=== PATIENT | female | born 1930 | race Asian ===

== ENCOUNTER 2018-08-02 11:45 | Inpatient (IN) | payer BC, OTHER ==
[~2018-08-02] VITALS: Ht 162.6 cm; Wt 64.0 kg
[2018-08-02] VITALS (36 sets, daily range): BP systolic 73–141; BP diastolic 27–76
[2018-08-02] MEDS ORDERED: MORPHINE SULFATE 2 MG/ML SYR IVP ONE (12:40)
[2018-08-02 13:05] LABS: BASOPHILS % (AUTO) 0.1 % (0.0-2.0); LYMPHOCYTES # (AUTO) 0.7 K/uL (2.5-16.5); LYMPHOCYTES % (AUTO) 5.7 % (20.5-51.1); MEAN CORPUSCULAR HEMOGLOBIN 31 pg (27-31); MEAN CORPUSCULAR HGB CONC 32 g/dL (33-37); MEAN CORPUSCULAR VOLUME 95.9 fL (80-94); MONOCYTES # (AUTO) 1.2 K/uL (0.8-1.0); MONOCYTES % (AUTO) 9.1 % (1.7-9.3); NEUTROPHILS % (AUTO) 85.1 % (42.2-75.2); PLATELET COUNT (AUTO) 213 K/uL (140-450); RED BLOOD CELL COUNT(AUTO) 1.96 MIL/uL (4.20-5.40); RED CELL DISTRIBUTION WIDTH 17.4 % (11.6-13.7); WHITE BLOOD COUNT (AUTO) 12.9 K/uL (4.8-10.8)
[2018-08-02 13:08] LABS: HEMATOCRIT 18.8 % (36-48)
[2018-08-02 13:10] LABS: ANION GAP 16.9 (8-16); CARBON DIOXIDE 23.6 mmol/L (21-32); CHLORIDE 101 mmol/L (98-107); GLUCOSE 152 mg/dL (74-106); POTASSIUM 4.5 mmol/L (3.5-5.1); SODIUM SERUM 137 mmol/L (136-145)
[2018-08-02 13:11] LABS: ALBUMIN 2.2 g/dL (3.4-5.0); CREATININE 2.3 mg/dL (0.6-1.3); TOTAL BILIRUBIN 0.6 mg/dL (0.0-1.0)
[2018-08-02 13:13] LABS: UREA NITROGEN, BLOOD 143 mg/dL (7-18)
[2018-08-02] MEDS ORDERED: DOPamine 400 MG/D5W PREMIX 250 ML IV ONE (13:15)
[2018-08-02] MEDS ORDERED: NACL 0.9% 1,000 ML IV ONE ×2 (13:15→17:30)
[2018-08-02 13:35] LABS: PROTHROMBIN TIME 11.1 secs (10.8-13.4)
[2018-08-02 13:40] LABS: ASPARTATE AMINOTRANSFERASE 82 U/L (15-37)
[2018-08-02] MEDS ORDERED: HYDROcodone/APAP 7.5/325 MG 1 TAB PO PRN (13:50)
[2018-08-02] MEDS ORDERED: ONDANSETRON 4 MG/2 ML VIAL IM/IVP PRN (13:50)
[2018-08-02] MEDS ORDERED: DOCUSATE SODIUM 100 MG GELCAP PO PRN (13:50)
[2018-08-02] MEDS ORDERED: LEVOFLOXACIN 500 MG/D5W PREMIX 100 ML IV ONE (13:55)
[2018-08-02] MEDS: NACL 0.9% 1,000 ML IV SCH (14:15)
[2018-08-02 14:38] LABS: APPEARANCE,URINE CLEAR (CLEAR); BILIRUBIN,URINE NEGATIVE (NEGATIVE); BLOOD, URINE NEGATIVE (NEGATIVE); COLOR,URINE YELLOW (YELLOW); LEUKOCYTE ESTERASE ,URINE NEGATIVE (NEGATIVE); NITRITE, URINE NEGATIVE (NEGATIVE); PH,URINE 5.5 (5.0-9.0); UGLUCOSE NEGATIVE (NEGATIVE)
[2018-08-02] MEDS ORDERED: PANTOPRAZOLE 40 MG INJ VIAL IVP SCH (15:09)
[2018-08-02 15:23] LABS: FREE T4 (FREE THYROXINE) 0.69 ng/dL (0.76-1.46); MAGNESIUM 2.8 mg/dL (1.8-2.4); PHOSPHORUS 3.8 mg/dL (2.5-4.9); THYROID STIMULATING HORMONE 2.84 uIU/mL (0.34-3.74)
[2018-08-02] MEDS ORDERED: HYDROmorphone 1 MG/ML AMP IVP SCH (15:30)
[2018-08-02] MEDS ORDERED: LORazepam 2 MG/ML VIAL IVP SCH ×2 (15:30→16:00)
[2018-08-02] MEDS ORDERED: DOPamine 400 MG/D5W PREMIX 250 ML IV SCH (15:30)
[2018-08-02] MEDS ORDERED: TRAM50TA1 PO (15:34)
[2018-08-02] MEDS ORDERED: ACET-1087 PO (15:34)
[2018-08-02] MEDS ORDERED: HYDR-5122 PO (15:34)
[2018-08-02] MEDS ORDERED: ATOR20TA PO (16:15)
[2018-08-02] MEDS ORDERED: CLOP75TA26 PO (16:15)
[2018-08-02] MEDS ORDERED: LOSA100T51 PO (16:15)
[2018-08-02] MEDS ORDERED: CITA40TA13 PO (16:15)
[2018-08-02] MEDS ORDERED: METO50TE2 PO (16:15)
[2018-08-02] MEDS: SENNA 8.6 MG TAB PO SCH (17:00)
[2018-08-02] MEDS ORDERED: NACL 0.9% 1,000 ML IV SCH (17:15)
[2018-08-02] MEDS ORDERED: Z-GUARD PASTE TP PRN (17:35)
[2018-08-02] MEDS ORDERED: SODIUM FERRIC GLUCONATE 125 MG in NACL 0.9% 100 ML IV SCH (18:30)
[2018-08-02 19:01] LABS: LYMPHOCYTES # (AUTO) 0.4 K/uL (2.5-16.5); LYMPHOCYTES % (AUTO) 3.3 % (20.5-51.1); MEAN CORPUSCULAR HEMOGLOBIN 31 pg (27-31); MEAN CORPUSCULAR HGB CONC 32 g/dL (33-37); MEAN CORPUSCULAR VOLUME 96.4 fL (80-94); MONOCYTES # (AUTO) 1.4 K/uL (0.8-1.0); MONOCYTES % (AUTO) 10.4 % (1.7-9.3); NEUTROPHILS # (AUTO) 11.5 K/uL (1.8-7.7); NEUTROPHILS % (AUTO) 86.3 % (42.2-75.2); PLATELET COUNT (AUTO) 187 K/uL (140-450); RED BLOOD CELL COUNT(AUTO) 1.72 MIL/uL (4.20-5.40); RED CELL DISTRIBUTION WIDTH 18.3 % (11.6-13.7); WHITE BLOOD COUNT (AUTO) 13.4 K/uL (4.8-10.8)
[2018-08-02 19:03] LABS: HEMATOCRIT 16.6 % (36-48); HEMOGLOBIN 5.3 g/dL (12.0-16.0)
[2018-08-02] MEDS: LACTULOSE 20 GM/30 ML UDC PO SCH (21:00)
[2018-08-02] MEDS: PANTOPRAZOLE 40 MG INJ VIAL IVP SCH (21:02)
[2018-08-02] MEDS: PIPER/TAZO 2.25GM/D5W PREMIX 50 ML IV SCH (21:03)
[2018-08-03] VITALS (95 sets, daily range): BP systolic 79–144; BP diastolic 26–69
[2018-08-03] MEDS: NACL 0.9% 1,000 ML IV SCH ×4 (00:22→20:17)
[2018-08-03 01:24] LABS: HEMATOCRIT 22.9 % (36-48); HEMOGLOBIN 7.5 g/dL (12.0-16.0); MEAN CORPUSCULAR HEMOGLOBIN 30 pg (27-31); MEAN CORPUSCULAR HGB CONC 33 g/dL (33-37); MEAN CORPUSCULAR VOLUME 91.5 fL (80-94); PLATELET COUNT (AUTO) 151 K/uL (140-450); RED CELL DISTRIBUTION WIDTH 17.6 % (11.6-13.7); WHITE BLOOD COUNT (AUTO) 13.8 K/uL (4.8-10.8)
[2018-08-03 01:47] LABS: LYMPHOCYTES % (MANUAL) 3 % (20-46); MONOCYTES % (MANUAL) 5 % (5-12)
[2018-08-03 01:58] LABS: ANION GAP 12.6 (8-16); CARBON DIOXIDE 22.8 mmol/L (21-32); CHLORIDE 109 mmol/L (98-107); CREATININE 1.5 mg/dL (0.6-1.3); GLUCOSE 123 mg/dL (74-106); POTASSIUM 4.4 mmol/L (3.5-5.1); SODIUM SERUM 140 mmol/L (136-145)
[2018-08-03 02:02] LABS: UREA NITROGEN, BLOOD 109 mg/dL (7-18)
[2018-08-03] MEDS: PANTOPRAZOLE 40 MG INJ VIAL IVP SCH ×3 (05:03→20:16)
[2018-08-03] MEDS: PIPER/TAZO 2.25GM/D5W PREMIX 50 ML IV SCH ×2 (05:03→13:18)
[2018-08-03] MEDS: NOREPINEPHRINE 8 MG in DEXTROSE 5% 250 ML IV PRN ×2 (05:54→19:22)
[2018-08-03] MEDS ORDERED: NOREPINEPHRINE 4 MG/4 ML VIAL IV ONE (05:56)
[2018-08-03 06:10] LABS: BASOPHILS % (AUTO) 0.1 % (0.0-2.0); EOSINOPHILS % (AUTO) 0.1 % (0.0-4.0); HEMATOCRIT 22.2 % (36-48); HEMOGLOBIN 7.2 g/dL (12.0-16.0); LYMPHOCYTES # (AUTO) 0.3 K/uL (2.5-16.5); LYMPHOCYTES % (AUTO) 2.9 % (20.5-51.1); MEAN CORPUSCULAR HEMOGLOBIN 30 pg (27-31); MEAN CORPUSCULAR HGB CONC 33 g/dL (33-37); MEAN CORPUSCULAR VOLUME 91.7 fL (80-94); MONOCYTES # (AUTO) 1.2 K/uL (0.8-1.0); MONOCYTES % (AUTO) 9.9 % (1.7-9.3); NEUTROPHILS # (AUTO) 10.4 K/uL (1.8-7.7); PLATELET COUNT (AUTO) 140 K/uL (140-450); RED BLOOD CELL COUNT(AUTO) 2.42 MIL/uL (4.20-5.40); RED CELL DISTRIBUTION WIDTH 18.8 % (11.6-13.7)
[2018-08-03 06:52] LABS: ANION GAP 10.6 (8-16); CARBON DIOXIDE 22.6 mmol/L (21-32); CHLORIDE 111 mmol/L (98-107); CREATININE 1.3 mg/dL (0.6-1.3); GLUCOSE 107 mg/dL (74-106); POTASSIUM 4.2 mmol/L (3.5-5.1); SODIUM SERUM 140 mmol/L (136-145)
[2018-08-03 06:53] LABS: MAGNESIUM 2.5 mg/dL (1.8-2.4); PHOSPHORUS 3.2 mg/dL (2.5-4.9)
[2018-08-03 07:14] LABS: UREA NITROGEN, BLOOD 96 mg/dL (7-18)
[2018-08-03 07:16] LABS: T4 (THYROXINE) 3.1 ug/dL (4.5-12.0)
[2018-08-03 07:40] LABS: CKMB RELATIVE INDEX 2.4 (0.0-2.5); CREATINE KINASE MB 14.2 ng/mL (0-3.6)
[2018-08-03] MEDS: LACTOBACILLUS RHAMNOSUS GG 1 EACH CAP PO SCH (08:33)
[2018-08-03] MEDS: LACTULOSE 20 GM/30 ML UDC PO SCH ×2 (08:33→20:16)
[2018-08-03] MEDS: CITALOPRAM 20 MG TAB PO SCH (08:33)
[2018-08-03] MEDS: ATORVASTATIN 20 MG TAB PO SCH (08:34)
[2018-08-03] MEDS: SENNA 8.6 MG TAB PO SCH ×3 (08:34→18:04)
[2018-08-03] MEDS: ACETAMINOPHEN 325 MG TAB PO PRN (08:40)
[2018-08-03] MEDS ORDERED: PANTOPRAZOLE 40 MG INJ VIAL IVP SCH (09:00)
[2018-08-03 09:28] LABS: TRANSFERRIN 148 mg/dL (200-370)
[2018-08-03] MEDS ORDERED: MAGNESIUM CITRATE 300 ML BTL PO SCH (12:00)
[2018-08-03 13:45] LABS: HEMOGLOBIN 8.9 g/dL (12.0-16.0); LYMPHOCYTES # (AUTO) 0.5 K/uL (2.5-16.5); LYMPHOCYTES % (AUTO) 3.8 % (20.5-51.1); MEAN CORPUSCULAR HEMOGLOBIN 30 pg (27-31); MEAN CORPUSCULAR HGB CONC 33 g/dL (33-37); MEAN CORPUSCULAR VOLUME 89.5 fL (80-94); MONOCYTES # (AUTO) 1.3 K/uL (0.8-1.0); MONOCYTES % (AUTO) 9.3 % (1.7-9.3); NEUTROPHILS % (AUTO) 86.9 % (42.2-75.2); PLATELET COUNT (AUTO) 151 K/uL (140-450); RED BLOOD CELL COUNT(AUTO) 3.02 MIL/uL (4.20-5.40); WHITE BLOOD COUNT (AUTO) 13.8 K/uL (4.8-10.8)
[2018-08-03 15:32] LABS: FOLIC ACID > 20.00 ng/mL (>3.0)
[2018-08-03 18:35] LABS: BASOPHILS % (AUTO) 0.1 % (0.0-2.0); EOSINOPHILS % (AUTO) 0.1 % (0.0-4.0); HEMATOCRIT 25.7 % (36-48); HEMOGLOBIN 8.4 g/dL (12.0-16.0); LYMPHOCYTES # (AUTO) 0.5 K/uL (2.5-16.5); LYMPHOCYTES % (AUTO) 4.6 % (20.5-51.1); MEAN CORPUSCULAR HEMOGLOBIN 30 pg (27-31); MEAN CORPUSCULAR HGB CONC 33 g/dL (33-37); MEAN CORPUSCULAR VOLUME 90.1 fL (80-94); MONOCYTES # (AUTO) 1.3 K/uL (0.8-1.0); MONOCYTES % (AUTO) 10.6 % (1.7-9.3); NEUTROPHILS # (AUTO) 10.1 K/uL (1.8-7.7); NEUTROPHILS % (AUTO) 84.6 % (42.2-75.2); PLATELET COUNT (AUTO) 142 K/uL (140-450); RED BLOOD CELL COUNT(AUTO) 2.85 MIL/uL (4.20-5.40); RED CELL DISTRIBUTION WIDTH 17.3 % (11.6-13.7); WHITE BLOOD COUNT (AUTO) 11.9 K/uL (4.8-10.8)
[2018-08-04] VITALS (89 sets, daily range): BP systolic 72–118; BP diastolic 20–79
[2018-08-04] MEDS: PANTOPRAZOLE 40 MG INJ VIAL IVP SCH (06:13)
[2018-08-04 07:01] LABS: HEMATOCRIT 24.8 % (36-48); HEMOGLOBIN 8.2 g/dL (12.0-16.0); MEAN CORPUSCULAR HEMOGLOBIN 30 pg (27-31); MEAN CORPUSCULAR HGB CONC 33 g/dL (33-37); MEAN CORPUSCULAR VOLUME 90.9 fL (80-94); PLATELET COUNT (AUTO) 142 K/uL (140-450); RED BLOOD CELL COUNT(AUTO) 2.73 MIL/uL (4.20-5.40); RED CELL DISTRIBUTION WIDTH 17.6 % (11.6-13.7); WHITE BLOOD COUNT (AUTO) 9.8 K/uL (4.8-10.8)
[2018-08-04 07:08] LABS: ANION GAP 9.3 (8-16); CARBON DIOXIDE 23.2 mmol/L (21-32); CHLORIDE 117 mmol/L (98-107); CREATININE 0.9 mg/dL (0.6-1.3); GLUCOSE 85 mg/dL (74-106); POTASSIUM 3.5 mmol/L (3.5-5.1); SODIUM SERUM 146 mmol/L (136-145); UREA NITROGEN, BLOOD 52 mg/dL (7-18)
[2018-08-04 07:43] LABS: MAGNESIUM 2.7 mg/dL (1.8-2.4); PHOSPHORUS 1.8 mg/dL (2.5-4.9)
[2018-08-04 07:44] LABS: LYMPHOCYTES % (MANUAL) 5 % (20-46); METAMYELOCYTES % 1 % (0-0); MONOCYTES % (MANUAL) 10 % (5-12); MYELOCYTES % 1 % (0-0)
[2018-08-04] MEDS ORDERED: ALBUMIN HUMAN 25% 100 ML IV SCH (08:30)
[2018-08-04] MEDS: NACL 0.45% 1,000 ML IV SCH ×2 (08:46→21:23)
[2018-08-04] MEDS: LACTULOSE 20 GM/30 ML UDC PO SCH (09:00)
[2018-08-04] MEDS: LACTOBACILLUS RHAMNOSUS GG 1 EACH CAP PO SCH (09:06)
[2018-08-04] MEDS: SENNA 8.6 MG TAB PO SCH ×2 (09:06→20:22)
[2018-08-04] MEDS: ATORVASTATIN 20 MG TAB PO SCH (09:06)
[2018-08-04] MEDS: CITALOPRAM 20 MG TAB PO SCH (09:06)
[2018-08-04] MEDS: ACETAMINOPHEN 325 MG TAB PO PRN ×3 (09:54→22:57)
[2018-08-04] MEDS: SODIUM PHOS / POTASSIUM PHOS 1 PKT PDR PO SCH ×3 (09:54→17:28)
[2018-08-04] MEDS ORDERED: DILTIAZEM 125 MG in DEXTROSE 5% 100 ML IV SCH (10:50)
[2018-08-04] MEDS: DIGOXIN 0.25 MG/ML AMP IV SCH ×2 (11:04→12:07)
[2018-08-04 11:38] LABS: HEMATOCRIT 24.1 % (36-48); HEMOGLOBIN 7.8 g/dL (12.0-16.0); MEAN CORPUSCULAR HEMOGLOBIN 30 pg (27-31); MEAN CORPUSCULAR HGB CONC 32 g/dL (33-37); MEAN CORPUSCULAR VOLUME 91.6 fL (80-94); PLATELET COUNT (AUTO) 136 K/uL (140-450); RED BLOOD CELL COUNT(AUTO) 2.63 MIL/uL (4.20-5.40); RED CELL DISTRIBUTION WIDTH 18.7 % (11.6-13.7)
[2018-08-04] MEDS ORDERED: FUROSEMIDE 20 MG/2 ML VIAL IVP SCH (11:40)
[2018-08-04 12:35] LABS: LYMPHOCYTES % (MANUAL) 5 % (20-46); MONOCYTES % (MANUAL) 8 % (5-12)
[2018-08-04 12:38] LABS: METAMYELOCYTES % 1 % (0-0)
[2018-08-04] MEDS ORDERED: DILTIAZEM 25 MG/5 ML VIAL IVP ONE (12:40)
[2018-08-04] MEDS: DILTIAZEM 125 MG in DEXTROSE 5% 100 ML IV SCH (13:07)
[2018-08-04] MEDS: PIPER/TAZO 2.25GM/D5W PREMIX 50 ML IV SCH ×2 (13:41→20:18)
[2018-08-04] MEDS ORDERED: FERROUS SULFATE 325 MG TABEC PO SCH (17:00)
[2018-08-04 18:52] LABS: APPEARANCE,URINE CLEAR (CLEAR); BILIRUBIN,URINE NEGATIVE (NEGATIVE); BLOOD, URINE NEGATIVE (NEGATIVE); COLOR,URINE YELLOW (YELLOW); LEUKOCYTE ESTERASE ,URINE NEGATIVE (NEGATIVE); NITRITE, URINE NEGATIVE (NEGATIVE); PH,URINE 5.5 (5.0-9.0); UGLUCOSE NEGATIVE (NEGATIVE)
[2018-08-04] MEDS ORDERED: MORPHINE SULFATE 2 MG/ML SYR IVP PRN (21:50)
[2018-08-05] VITALS (55 sets, daily range): BP systolic 96–130; BP diastolic 36–77
[2018-08-05] MEDS ORDERED: HYDROcodone/APAP 7.5/325 MG 1 TAB PO SCH
[2018-08-05] MEDS ORDERED: NOREPINEPHRINE 4 MG/4 ML VIAL IV ONE (03:24)
[2018-08-05] MEDS: DILTIAZEM 125 MG in DEXTROSE 5% 100 ML IV SCH (03:35)
[2018-08-05] MEDS: NOREPINEPHRINE 8 MG in DEXTROSE 5% 250 ML IV PRN (03:36)
[2018-08-05] MEDS: PIPER/TAZO 2.25GM/D5W PREMIX 50 ML IV SCH ×3 (04:35→21:00)
[2018-08-05] MEDS ORDERED: DILTIAZEM 125 MG in DEXTROSE 5% 100 ML IV SCH (04:45)
[2018-08-05] MEDS: NACL 0.45% 1,000 ML IV SCH ×2 (07:45→17:35)
[2018-08-05] MEDS: FERROUS SULFATE 300 MG/5 ML UDC PO SCH (08:53)
[2018-08-05] MEDS: LACTULOSE 20 GM/30 ML UDC PO SCH (08:54)
[2018-08-05] MEDS: CITALOPRAM 20 MG TAB PO SCH (08:54)
[2018-08-05] MEDS: POTASSIUM CHLORIDE 20% 40 MEQ/15 ML UDC PO SCH (08:54)
[2018-08-05 08:55] LABS: HEMATOCRIT 23.3 % (36-48); HEMOGLOBIN 7.5 g/dL (12.0-16.0); MEAN CORPUSCULAR HEMOGLOBIN 30 pg (27-31); MEAN CORPUSCULAR HGB CONC 32 g/dL (33-37); MEAN CORPUSCULAR VOLUME 91.6 fL (80-94); PLATELET COUNT (AUTO) 131 K/uL (140-450); RED BLOOD CELL COUNT(AUTO) 2.55 MIL/uL (4.20-5.40); WHITE BLOOD COUNT (AUTO) 9.7 K/uL (4.8-10.8)
[2018-08-05] MEDS: LACTOBACILLUS RHAMNOSUS GG 1 EACH CAP PO SCH (08:55)
[2018-08-05] MEDS: PANTOPRAZOLE 40 MG INJ VIAL IVP SCH (08:55)
[2018-08-05] MEDS: ATORVASTATIN 20 MG TAB PO SCH (08:55)
[2018-08-05] MEDS: VIT-B COMP/VIT-C/FOLIC ACID 1 TAB PO SCH (08:55)
[2018-08-05] MEDS ORDERED: DILTIAZEM 30 MG TAB PO SCH (09:00)
[2018-08-05 09:22] LABS: LYMPHOCYTES % (MANUAL) 7 % (20-46); MONOCYTES % (MANUAL) 8 % (5-12)
[2018-08-05 09:27] LABS: ANION GAP 11.5 (8-16); CARBON DIOXIDE 23.1 mmol/L (21-32); CHLORIDE 110 mmol/L (98-107); CREATININE 0.9 mg/dL (0.6-1.3); GLUCOSE 87 mg/dL (74-106); POTASSIUM 3.6 mmol/L (3.5-5.1); SODIUM SERUM 141 mmol/L (136-145); UREA NITROGEN, BLOOD 30 mg/dL (7-18)
[2018-08-05 09:47] LABS: MAGNESIUM 2.4 mg/dL (1.8-2.4); PHOSPHORUS 1.9 mg/dL (2.5-4.9)
[2018-08-05] MEDS ORDERED: CLINICAL MONITORING MC PRN (10:10)
[2018-08-05] MEDS ORDERED: ALBUMIN HUMAN 25% 100 ML IV SCH (11:00)
[2018-08-05] MEDS: DILTIAZEM 30 MG TAB PO SCH ×2 (12:04→17:38)
[2018-08-05] MEDS: SODIUM PHOS / POTASSIUM PHOS 1 PKT PDR PO SCH ×2 (13:00→16:23)
[2018-08-05] MEDS ORDERED: POTASSIUM PHOSPHATE 15 MM in NACL 0.9% 250 ML IV SCH (13:00)
[2018-08-05] MEDS: ACETAMINOPHEN EXTRA STRENGTH 500 MG TAB PO PRN (16:19)
[2018-08-05] MEDS: SENNA 8.6 MG TAB PO SCH (21:01)
[2018-08-06] VITALS (9 sets, daily range): BP systolic 91–127; BP diastolic 39–51
[2018-08-06] MEDS: DILTIAZEM 30 MG TAB PO SCH ×4 (00:08→18:04)
[2018-08-06] MEDS: NACL 0.45% 1,000 ML IV SCH (04:02)
[2018-08-06] MEDS: PIPER/TAZO 2.25GM/D5W PREMIX 50 ML IV SCH ×3 (05:35→21:15)
[2018-08-06 07:09] LABS: BASOPHILS % (AUTO) 0.2 % (0.0-2.0); EOSINOPHILS # (AUTO) 0.1 K/uL (0-0.4); EOSINOPHILS % (AUTO) 1.2 % (0.0-4.0); HEMOGLOBIN 7.2 g/dL (12.0-16.0); LYMPHOCYTES # (AUTO) 0.4 K/uL (2.5-16.5); LYMPHOCYTES % (AUTO) 5.3 % (20.5-51.1); MEAN CORPUSCULAR HEMOGLOBIN 30 pg (27-31); MEAN CORPUSCULAR HGB CONC 33 g/dL (33-37); MEAN CORPUSCULAR VOLUME 92.3 fL (80-94); MONOCYTES # (AUTO) 0.6 K/uL (0.8-1.0); MONOCYTES % (AUTO) 7.2 % (1.7-9.3); NEUTROPHILS # (AUTO) 7.2 K/uL (1.8-7.7); NEUTROPHILS % (AUTO) 86.1 % (42.2-75.2); PLATELET COUNT (AUTO) 103 K/uL (140-450); RED BLOOD CELL COUNT(AUTO) 2.38 MIL/uL (4.20-5.40); RED CELL DISTRIBUTION WIDTH 18.5 % (11.6-13.7); WHITE BLOOD COUNT (AUTO) 8.3 K/uL (4.8-10.8)
[2018-08-06 07:17] LABS: ANION GAP 11.5 (8-16); CARBON DIOXIDE 22.5 mmol/L (21-32); CHLORIDE 111 mmol/L (98-107); CREATININE 0.7 mg/dL (0.6-1.3); GLUCOSE 66 mg/dL (74-106); SODIUM SERUM 141 mmol/L (136-145); UREA NITROGEN, BLOOD 17 mg/dL (7-18)
[2018-08-06 07:18] LABS: MAGNESIUM 2.2 mg/dL (1.8-2.4); PHOSPHORUS 1.8 mg/dL (2.5-4.9)
[2018-08-06] MEDS ORDERED: DEXT 5% / NACL 0.45% 1,000 ML IV SCH (08:30)
[2018-08-06] MEDS ORDERED: DEXTROSE 50% 50 ML SYR IVP PRN (08:30)
[2018-08-06] MEDS: LACTOBACILLUS RHAMNOSUS GG 1 EACH CAP PO SCH (08:34)
[2018-08-06] MEDS: ATORVASTATIN 20 MG TAB PO SCH (08:34)
[2018-08-06] MEDS: VIT-B COMP/VIT-C/FOLIC ACID 1 TAB PO SCH (08:34)
[2018-08-06] MEDS: PANTOPRAZOLE 40 MG INJ VIAL IVP SCH (08:34)
[2018-08-06] MEDS: POTASSIUM CHLORIDE 20% 40 MEQ/15 ML UDC PO SCH (08:34)
[2018-08-06] MEDS: CITALOPRAM 20 MG TAB PO SCH (08:35)
[2018-08-06] MEDS: FERROUS SULFATE 300 MG/5 ML UDC PO SCH (08:35)
[2018-08-06] MEDS: LACTULOSE 20 GM/30 ML UDC PO SCH (08:35)
[2018-08-06] MEDS: SODIUM PHOS / POTASSIUM PHOS 1 PKT PDR PO SCH ×2 (08:36→18:04)
[2018-08-06] MEDS ORDERED: SODIUM FERRIC GLUCONATE 125 MG in NACL 0.9% 100 ML IV SCH (09:30)
[2018-08-06] MEDS ORDERED: SODIUM PHOSPHATE 15 MMOLE in NACL 0.9% 250 ML IV SCH (11:00)
[2018-08-06] MEDS: ACETAMINOPHEN EXTRA STRENGTH 500 MG TAB PO PRN (11:11)
[2018-08-06] MEDS: FERROUS GLUCONATE 324 MG TAB PO SCH (18:04)
[2018-08-06] MEDS: SENNA 8.6 MG TAB PO SCH (21:13)
[2018-08-07] VITALS: BP 127/39
[2018-08-07] MEDS: ACETAMINOPHEN EXTRA STRENGTH 500 MG TAB PO PRN ×2 (00:17→13:21)
[2018-08-07] MEDS: DILTIAZEM 30 MG TAB PO SCH ×4 (00:18→17:32)
[2018-08-07 04:00] VITALS: BP 98/45
[2018-08-07] MEDS: PIPER/TAZO 2.25GM/D5W PREMIX 50 ML IV SCH ×3 (05:03→20:40)
[2018-08-07 06:52] LABS: HEMATOCRIT 22.7 % (36-48); HEMOGLOBIN 7.4 g/dL (12.0-16.0); MEAN CORPUSCULAR HEMOGLOBIN 30 pg (27-31); MEAN CORPUSCULAR HGB CONC 33 g/dL (33-37); MEAN CORPUSCULAR VOLUME 92.9 fL (80-94); PLATELET COUNT (AUTO) 99 K/uL (140-450); RED BLOOD CELL COUNT(AUTO) 2.44 MIL/uL (4.20-5.40); RED CELL DISTRIBUTION WIDTH 18.1 % (11.6-13.7); WHITE BLOOD COUNT (AUTO) 11.3 K/uL (4.8-10.8)
[2018-08-07 08:00] VITALS: BP 131/50
[2018-08-07] MEDS: SODIUM PHOS / POTASSIUM PHOS 1 PKT PDR PO SCH ×3 (08:32→17:21)
[2018-08-07] MEDS: VIT-B COMP/VIT-C/FOLIC ACID 1 TAB PO SCH (08:33)
[2018-08-07] MEDS: LACTULOSE 20 GM/30 ML UDC PO SCH (08:33)
[2018-08-07] MEDS: PANTOPRAZOLE 40 MG INJ VIAL IVP SCH (08:33)
[2018-08-07] MEDS: ATORVASTATIN 20 MG TAB PO SCH (08:33)
[2018-08-07] MEDS: LACTOBACILLUS RHAMNOSUS GG 1 EACH CAP PO SCH (08:34)
[2018-08-07] MEDS: CITALOPRAM 20 MG TAB PO SCH (08:34)
[2018-08-07] MEDS: POTASSIUM CHLORIDE 20% 40 MEQ/15 ML UDC PO SCH (08:34)
[2018-08-07] MEDS: FERROUS GLUCONATE 324 MG TAB PO SCH ×2 (08:47→17:21)
[2018-08-07] MEDS: SODIUM FERRIC GLUCONATE 125 MG in NACL 0.9% 100 ML IV SCH (08:48)
[2018-08-07 08:49] LABS: PHOSPHORUS 1.9 mg/dL (2.5-4.9)
[2018-08-07 08:50] LABS: ANION GAP 10.6 (8-16); CARBON DIOXIDE 26.1 mmol/L (21-32); CHLORIDE 110 mmol/L (98-107); CREATININE 0.6 mg/dL (0.6-1.3); GLUCOSE 70 mg/dL (74-106); POTASSIUM 3.7 mmol/L (3.5-5.1); SODIUM SERUM 143 mmol/L (136-145); UREA NITROGEN, BLOOD 10 mg/dL (7-18)
[2018-08-07 09:12] LABS: BASOPHILS % (MANUAL) 0 % (0-2); EOSINOPHILS % (MANUAL) 2 % (0-4); LYMPHOCYTES % (MANUAL) 4 % (20-46); MONOCYTES % (MANUAL) 7 % (5-12)
[2018-08-07] MEDS ORDERED: POTASSIUM PHOSPHATE 15 MM in NACL 0.9% 250 ML IV SCH ×3 (09:30→14:00)
[2018-08-07 12:00] VITALS: BP 158/65
[2018-08-07] MEDS ORDERED: MAGNESIUM OXIDE 400 MG TAB PO SCH (12:00)
[2018-08-07 16:00] VITALS: BP 119/33
[2018-08-07 20:00] VITALS: BP 138/44
[2018-08-07] MEDS: FUROSEMIDE 20 MG TAB PO SCH ×2 (20:00→20:40)
[2018-08-07] MEDS: SENNA 8.6 MG TAB PO SCH (20:41)
[2018-08-07] MEDS: ACETAMINOPHEN 325 MG TAB PO PRN (21:35)
[2018-08-08] VITALS: BP 130/39
[2018-08-08] MEDS: Z-GUARD PASTE TP SCH ×2 (00:01→13:37)
[2018-08-08] MEDS: DILTIAZEM 30 MG TAB PO SCH ×6 (01:11→23:59)
[2018-08-08] MEDS: FUROSEMIDE 20 MG TAB PO SCH ×2 (01:11)
[2018-08-08 04:00] VITALS: BP 128/42
[2018-08-08] MEDS: PIPER/TAZO 2.25GM/D5W PREMIX 50 ML IV SCH ×2 (04:09→13:34)
[2018-08-08 07:31] LABS: HEMATOCRIT 28.9 % (36-48); HEMOGLOBIN 9.5 g/dL (12.0-16.0); MEAN CORPUSCULAR HEMOGLOBIN 30 pg (27-31); MEAN CORPUSCULAR HGB CONC 33 g/dL (33-37); MEAN CORPUSCULAR VOLUME 92.1 fL (80-94); PLATELET COUNT (AUTO) 102 K/uL (140-450); RED BLOOD CELL COUNT(AUTO) 3.14 MIL/uL (4.20-5.40); RED CELL DISTRIBUTION WIDTH 17.7 % (11.6-13.7); WHITE BLOOD COUNT (AUTO) 12.2 K/uL (4.8-10.8)
[2018-08-08 08:00] VITALS: BP 150/65
[2018-08-08] MEDS: SODIUM PHOS / POTASSIUM PHOS 1 PKT PDR PO SCH ×2 (08:12→17:41)
[2018-08-08] MEDS: PANTOPRAZOLE 40 MG INJ VIAL IVP SCH (08:13)
[2018-08-08] MEDS: CITALOPRAM 20 MG TAB PO SCH (08:15)
[2018-08-08] MEDS: FERROUS GLUCONATE 324 MG TAB PO SCH ×2 (08:15→17:41)
[2018-08-08] MEDS: VIT-B COMP/VIT-C/FOLIC ACID 1 TAB PO SCH (08:15)
[2018-08-08] MEDS: LACTOBACILLUS RHAMNOSUS GG 1 EACH CAP PO SCH ×2 (08:16→08:49)
[2018-08-08] MEDS: POTASSIUM CHLORIDE 20% 40 MEQ/15 ML UDC PO SCH (08:16)
[2018-08-08 08:19] LABS: PROTHROMBIN TIME 10.8 secs (10.8-13.4)
[2018-08-08 08:21] LABS: ANION GAP 10.8 (8-16); CARBON DIOXIDE 28.8 mmol/L (21-32); CHLORIDE 108 mmol/L (98-107); CREATININE 0.6 mg/dL (0.6-1.3); GLUCOSE 82 mg/dL (74-106); POTASSIUM 3.6 mmol/L (3.5-5.1); SODIUM SERUM 144 mmol/L (136-145); UREA NITROGEN, BLOOD 7 mg/dL (7-18)
[2018-08-08 08:25] LABS: BASOPHILS % (MANUAL) 0 % (0-2); EOSINOPHILS % (MANUAL) 0 % (0-4); LYMPHOCYTES % (MANUAL) 4 % (20-46); MONOCYTES % (MANUAL) 7 % (5-12)
[2018-08-08 08:26] LABS: MAGNESIUM 1.8 mg/dL (1.8-2.4); PHOSPHORUS 1.8 mg/dL (2.5-4.9)
[2018-08-08] MEDS: ATORVASTATIN 20 MG TAB PO SCH (08:37)
[2018-08-08] MEDS: LACTULOSE 20 GM/30 ML UDC PO SCH (08:38)
[2018-08-08] MEDS: SODIUM FERRIC GLUCONATE 125 MG in NACL 0.9% 100 ML IV SCH (08:55)
[2018-08-08 12:00] VITALS: BP_SYST 12; BP_SYST 120; BP_DIAS 57
[2018-08-08] MEDS ORDERED: SODIUM PHOS / POTASSIUM PHOS 1 PKT PDR PO SCH (13:00)
[2018-08-08 16:00] VITALS: BP 155/57
[2018-08-08 18:04] LABS: BASOPHILS # (AUTO) 0.1 K/uL (0.00-0.22); BASOPHILS % (AUTO) 0.5 % (0.0-2.0); EOSINOPHILS # (AUTO) 0.1 K/uL (0-0.4); EOSINOPHILS % (AUTO) 1.1 % (0.0-4.0); HEMATOCRIT 29.9 % (36-48); HEMOGLOBIN 9.6 g/dL (12.0-16.0); LYMPHOCYTES # (AUTO) 0.5 K/uL (2.5-16.5); LYMPHOCYTES % (AUTO) 3.9 % (20.5-51.1); MEAN CORPUSCULAR HEMOGLOBIN 30 pg (27-31); MEAN CORPUSCULAR HGB CONC 32 g/dL (33-37); MEAN CORPUSCULAR VOLUME 92.4 fL (80-94); MONOCYTES # (AUTO) 0.9 K/uL (0.8-1.0); MONOCYTES % (AUTO) 6.4 % (1.7-9.3); NEUTROPHILS # (AUTO) 11.7 K/uL (1.8-7.7); NEUTROPHILS % (AUTO) 88.1 % (42.2-75.2); PLATELET COUNT (AUTO) 105 K/uL (140-450); RED BLOOD CELL COUNT(AUTO) 3.24 MIL/uL (4.20-5.40); WHITE BLOOD COUNT (AUTO) 13.3 K/uL (4.8-10.8)
[2018-08-08 20:00] VITALS: BP 148/55
[2018-08-08] MEDS: CEFEPIME 1,000 MG in DEXTROSE 5% 50 ML IV SCH (20:08)
[2018-08-08] MEDS: SENNA 8.6 MG TAB PO SCH (20:09)
[2018-08-09] VITALS: BP 130/40
[2018-08-09] MEDS ORDERED: PIPER/TAZO 3.375GM/D5W PREMIX 50 ML IV SCH (01:00)
[2018-08-09] MEDS ORDERED: PIPERACILLIN/TAZOBACTAM 3.375 GM VIAL IV ONE (01:21)
[2018-08-09] MEDS: Z-GUARD PASTE TP SCH ×2 (01:31→12:23)
[2018-08-09 04:00] VITALS: BP 145/50
[2018-08-09] MEDS: DILTIAZEM 30 MG TAB PO SCH ×4 (05:43→23:54)
[2018-08-09] MEDS ORDERED: NACL 0.9% 500 ML IV ONE (06:05)
[2018-08-09] MEDS ORDERED: DILTIAZEM 25 MG/5 ML VIAL IVP SCH (06:30)
[2018-08-09 07:43] LABS: BASOPHILS % (AUTO) 0.3 % (0.0-2.0); EOSINOPHILS # (AUTO) 0.1 K/uL (0-0.4); EOSINOPHILS % (AUTO) 0.8 % (0.0-4.0); HEMATOCRIT 32.2 % (36-48); HEMOGLOBIN 10.3 g/dL (12.0-16.0); LYMPHOCYTES # (AUTO) 0.6 K/uL (2.5-16.5); LYMPHOCYTES % (AUTO) 5.5 % (20.5-51.1); MEAN CORPUSCULAR HEMOGLOBIN 30 pg (27-31); MEAN CORPUSCULAR HGB CONC 32 g/dL (33-37); MONOCYTES # (AUTO) 0.7 K/uL (0.8-1.0); MONOCYTES % (AUTO) 6.3 % (1.7-9.3); NEUTROPHILS # (AUTO) 9.4 K/uL (1.8-7.7); NEUTROPHILS % (AUTO) 87.1 % (42.2-75.2); PLATELET COUNT (AUTO) 103 K/uL (140-450); RED BLOOD CELL COUNT(AUTO) 3.42 MIL/uL (4.20-5.40); RED CELL DISTRIBUTION WIDTH 21.3 % (11.6-13.7); WHITE BLOOD COUNT (AUTO) 10.7 K/uL (4.8-10.8)
[2018-08-09] MEDS: DEXT 5% /NACL 0.9% 1,000 ML IV SCH ×2 (07:48→20:00)
[2018-08-09 08:00] VITALS: BP 127/50
[2018-08-09 08:31] LABS: CHLORIDE 108 mmol/L (98-107); CREATININE 0.6 mg/dL (0.6-1.3); GLUCOSE 98 mg/dL (74-106); SODIUM SERUM 143 mmol/L (136-145); UREA NITROGEN, BLOOD 5 mg/dL (7-18)
[2018-08-09 08:35] LABS: MAGNESIUM 1.7 mg/dL (1.8-2.4); PHOSPHORUS 1.7 mg/dL (2.5-4.9)
[2018-08-09] MEDS ORDERED: MAG SULF 2000 MG/WATER PREMIX 50 ML IV ONE (08:50)
[2018-08-09] MEDS: VIT-B COMP/VIT-C/FOLIC ACID 1 TAB PO SCH (08:57)
[2018-08-09] MEDS: ATORVASTATIN 20 MG TAB PO SCH (08:57)
[2018-08-09] MEDS: FERROUS GLUCONATE 324 MG TAB PO SCH ×2 (08:57→17:05)
[2018-08-09] MEDS: LACTOBACILLUS RHAMNOSUS GG 1 EACH CAP PO SCH (08:57)
[2018-08-09] MEDS: CITALOPRAM 20 MG TAB PO SCH (08:58)
[2018-08-09] MEDS: LACTULOSE 20 GM/30 ML UDC PO SCH (08:58)
[2018-08-09] MEDS: SODIUM PHOS / POTASSIUM PHOS 1 PKT PDR PO SCH ×3 (08:58→17:05)
[2018-08-09] MEDS: PANTOPRAZOLE 40 MG INJ VIAL IVP SCH (08:58)
[2018-08-09] MEDS: POTASSIUM CHLORIDE 20% 40 MEQ/15 ML UDC PO SCH (08:59)
[2018-08-09] MEDS: SODIUM FERRIC GLUCONATE 125 MG in NACL 0.9% 100 ML IV SCH (09:02)
[2018-08-09] MEDS: MAGNESIUM SULFATE 1GM in DEXTROSE 5% 100 ML PREMIX IV SCH ×2 (10:33→11:28)
[2018-08-09 12:00] VITALS: BP 139/48
[2018-08-09] MEDS ORDERED: DOCU-299 PO (12:34)
[2018-08-09] MEDS ORDERED: D50SYR IVP (12:34)
[2018-08-09] MEDS ORDERED: ONDA2SOL45 IM/IVP (12:34)
[2018-08-09] MEDS ORDERED: FERR324T11 PO (12:34)
[2018-08-09] MEDS ORDERED: LACT10SO11 PO (12:34)
[2018-08-09] MEDS ORDERED: PHOS1PDR4 PO (12:34)
[2018-08-09] MEDS ORDERED: NEP PO (12:34)
[2018-08-09] MEDS ORDERED: CAR30 PO (12:34)
[2018-08-09] MEDS ORDERED: ZGUARD TP (12:34)
[2018-08-09] MEDS ORDERED: SENN-74 PO (12:34)
[2018-08-09] MEDS ORDERED: LACT10CA PO (12:34)
[2018-08-09] MEDS ORDERED: ACET-2166 PO (12:34)
[2018-08-09] MEDS ORDERED: PANT40EC PO (12:45)
[2018-08-09] MEDS ORDERED: CEFE1PDS IV (12:47)
[2018-08-09] MEDS ORDERED: FUROSEMIDE 40 MG/4 ML VIAL IVP SCH (13:00)
[2018-08-09] MEDS ORDERED: SODIUM PHOSPHATE 30 MMOLE in NACL 0.9% 250 ML IV SCH (14:00)
[2018-08-09 16:00] VITALS: BP 117/51
[2018-08-09 20:00] VITALS: BP 116/46
[2018-08-09] MEDS: SENNA 8.6 MG TAB PO SCH (20:20)
[2018-08-09] MEDS: CEFEPIME 1,000 MG in DEXTROSE 5% 50 ML IV SCH (20:21)
[2018-08-09] MEDS: FLUCONAZOLE 200 MG/NS PREMIX 100 ML IV SCH (20:51)
[2018-08-10] VITALS: BP 131/46
[2018-08-10] MEDS: Z-GUARD PASTE TP SCH ×2 (01:15→14:25)
[2018-08-10 04:00] VITALS: BP 152/53
[2018-08-10] MEDS: DILTIAZEM 30 MG TAB PO SCH ×4 (05:55→23:34)
[2018-08-10 07:01] LABS: BASOPHILS % (AUTO) 0.4 % (0.0-2.0); EOSINOPHILS # (AUTO) 0.1 K/uL (0-0.4); HEMATOCRIT 29.1 % (36-48); HEMOGLOBIN 9.6 g/dL (12.0-16.0); LYMPHOCYTES # (AUTO) 0.6 K/uL (2.5-16.5); LYMPHOCYTES % (AUTO) 6.3 % (20.5-51.1); MEAN CORPUSCULAR HEMOGLOBIN 31 pg (27-31); MEAN CORPUSCULAR HGB CONC 33 g/dL (33-37); MONOCYTES # (AUTO) 0.8 K/uL (0.8-1.0); MONOCYTES % (AUTO) 8.1 % (1.7-9.3); NEUTROPHILS # (AUTO) 8.5 K/uL (1.8-7.7); NEUTROPHILS % (AUTO) 84.2 % (42.2-75.2); PLATELET COUNT (AUTO) 100 K/uL (140-450); RED CELL DISTRIBUTION WIDTH 21.7 % (11.6-13.7); WHITE BLOOD COUNT (AUTO) 10.1 K/uL (4.8-10.8)
[2018-08-10 08:00] VITALS: BP 135/46
[2018-08-10 08:30] LABS: ANION GAP 3.5 (8-16); CHLORIDE 108 mmol/L (98-107); CREATININE 0.5 mg/dL (0.6-1.3); GLUCOSE 96 mg/dL (74-106); POTASSIUM 3.5 mmol/L (3.5-5.1); SODIUM SERUM 143 mmol/L (136-145); UREA NITROGEN, BLOOD 6 mg/dL (7-18)
[2018-08-10] MEDS: LACTULOSE 20 GM/30 ML UDC PO SCH (08:32)
[2018-08-10] MEDS: LACTOBACILLUS RHAMNOSUS GG 1 EACH CAP PO SCH (08:32)
[2018-08-10] MEDS: SODIUM FERRIC GLUCONATE 125 MG in NACL 0.9% 100 ML IV SCH (08:32)
[2018-08-10] MEDS: POTASSIUM CHLORIDE 20% 40 MEQ/15 ML UDC PO SCH (08:32)
[2018-08-10] MEDS: PANTOPRAZOLE 40 MG INJ VIAL IVP SCH (08:32)
[2018-08-10] MEDS: SODIUM PHOS / POTASSIUM PHOS 1 PKT PDR PO SCH (08:33)
[2018-08-10] MEDS: VIT-B COMP/VIT-C/FOLIC ACID 1 TAB PO SCH (08:33)
[2018-08-10] MEDS: ATORVASTATIN 20 MG TAB PO SCH (08:33)
[2018-08-10] MEDS: CITALOPRAM 20 MG TAB PO SCH (08:33)
[2018-08-10] MEDS: FERROUS GLUCONATE 324 MG TAB PO SCH ×2 (08:34→17:07)
[2018-08-10 09:13] LABS: MAGNESIUM 1.9 mg/dL (1.8-2.4)
[2018-08-10 09:14] LABS: PHOSPHORUS 2.4 mg/dL (2.5-4.9)
[2018-08-10 12:00] VITALS: BP 115/44
[2018-08-10] MEDS: DEXT 5% /NACL 0.9% 1,000 ML IV SCH (15:17)
[2018-08-10 16:00] VITALS: BP 138/42
[2018-08-10] MEDS: FLUCONAZOLE 200 MG/NS PREMIX 100 ML IV SCH (19:21)
[2018-08-10 20:00] VITALS: BP 116/37
[2018-08-10] MEDS: CEFEPIME 1,000 MG in DEXTROSE 5% 50 ML IV SCH (20:00)
[2018-08-10] MEDS: SENNA 8.6 MG TAB PO SCH (20:00)
[2018-08-11] VITALS: BP 136/45
[2018-08-11] MEDS: Z-GUARD PASTE TP SCH ×2 (00:29→13:21)
[2018-08-11 04:00] VITALS: BP 145/51
[2018-08-11] MEDS: DILTIAZEM 30 MG TAB PO SCH ×4 (05:31→23:38)
[2018-08-11 07:14] LABS: PLATELET COUNT (AUTO) 88 K/uL (140-450); RED BLOOD CELL COUNT(AUTO) 2.83 MIL/uL (4.20-5.40); WHITE BLOOD COUNT (AUTO) 7.9 K/uL (4.8-10.8)
[2018-08-11 07:22] LABS: HEMOGLOBIN 8.6 g/dL (12.0-16.0); MEAN CORPUSCULAR HEMOGLOBIN 30 pg (27-31); MEAN CORPUSCULAR HGB CONC 32 g/dL (33-37); MEAN CORPUSCULAR VOLUME 95.5 fL (80-94)
[2018-08-11 07:48] LABS: ANION GAP 7.9 (8-16); CARBON DIOXIDE 35.5 mmol/L (21-32); CHLORIDE 104 mmol/L (98-107); CREATININE 0.4 mg/dL (0.6-1.3); GLUCOSE 104 mg/dL (74-106); POTASSIUM 3.4 mmol/L (3.5-5.1); SODIUM SERUM 144 mmol/L (136-145); UREA NITROGEN, BLOOD 7 mg/dL (7-18)
[2018-08-11 08:00] VITALS: BP 158/41
[2018-08-11 08:12] LABS: LYMPHOCYTES % (MANUAL) 5 % (20-46); MAGNESIUM 1.7 mg/dL (1.8-2.4); MONOCYTES % (MANUAL) 8 % (5-12); PHOSPHORUS 1.5 mg/dL (2.5-4.9)
[2018-08-11] MEDS ORDERED: POTASSIUM CHLORIDE 20% 40 MEQ/15 ML UDC PO SCH (08:45)
[2018-08-11] MEDS: LACTULOSE 20 GM/30 ML UDC PO SCH (09:00)
[2018-08-11] MEDS: PANTOPRAZOLE 40 MG INJ VIAL IVP SCH (09:24)
[2018-08-11] MEDS: LACTOBACILLUS RHAMNOSUS GG 1 EACH CAP PO SCH (09:24)
[2018-08-11] MEDS: ATORVASTATIN 20 MG TAB PO SCH (09:24)
[2018-08-11] MEDS: VIT-B COMP/VIT-C/FOLIC ACID 1 TAB PO SCH (09:24)
[2018-08-11] MEDS: CITALOPRAM 20 MG TAB PO SCH (09:24)
[2018-08-11] MEDS: POTASSIUM CHLORIDE 20% 40 MEQ/15 ML UDC PO SCH (09:25)
[2018-08-11] MEDS ORDERED: MAGNESIUM OXIDE 400 MG TAB PO SCH (09:30)
[2018-08-11] MEDS: FERROUS GLUCONATE 324 MG TAB PO SCH ×2 (09:31→18:25)
[2018-08-11] MEDS: DEXT 5% /NACL 0.9% 1,000 ML IV SCH (10:09)
[2018-08-11 12:00] VITALS: BP 137/37
[2018-08-11] MEDS: SODIUM PHOS / POTASSIUM PHOS 1 PKT PDR PO SCH ×2 (13:24→18:25)
[2018-08-11 16:00] VITALS: BP 139/46
[2018-08-11 20:00] VITALS: BP 143/54
[2018-08-11] MEDS: SENNA 8.6 MG TAB PO SCH (21:44)
[2018-08-11] MEDS: FLUCONAZOLE 200 MG/NS PREMIX 100 ML IV SCH (21:45)
[2018-08-11] MEDS ORDERED: CEFEPIME 1,000 MG VIAL ONE (21:45)
[2018-08-11] MEDS: CEFEPIME 1,000 MG in DEXTROSE 5% 50 ML IV SCH (21:45)
[2018-08-12] VITALS: BP 147/57
[2018-08-12] MEDS: Z-GUARD PASTE TP SCH ×2 (01:00→12:30)
[2018-08-12] MEDS ORDERED: INFLUENZA VIRUS VACCINE QUAD 0.5 ML SYR IMVAC PRN (01:10)
[2018-08-12 04:00] VITALS: BP 132/50
[2018-08-12] MEDS: DEXT 5% /NACL 0.9% 1,000 ML IV SCH (05:27)
[2018-08-12] MEDS: DILTIAZEM 30 MG TAB PO SCH ×3 (05:31→17:22)
[2018-08-12 07:15] LABS: BASOPHILS % (AUTO) 0.4 % (0.0-2.0); EOSINOPHILS # (AUTO) 0.1 K/uL (0-0.4); EOSINOPHILS % (AUTO) 1.1 % (0.0-4.0); HEMATOCRIT 29.7 % (36-48); HEMOGLOBIN 9.6 g/dL (12.0-16.0); LYMPHOCYTES # (AUTO) 0.6 K/uL (2.5-16.5); LYMPHOCYTES % (AUTO) 8.5 % (20.5-51.1); MEAN CORPUSCULAR HEMOGLOBIN 31 pg (27-31); MEAN CORPUSCULAR HGB CONC 32 g/dL (33-37); MEAN CORPUSCULAR VOLUME 95.8 fL (80-94); MONOCYTES # (AUTO) 0.6 K/uL (0.8-1.0); MONOCYTES % (AUTO) 8.7 % (1.7-9.3); NEUTROPHILS # (AUTO) 5.8 K/uL (1.8-7.7); NEUTROPHILS % (AUTO) 81.3 % (42.2-75.2); PLATELET COUNT (AUTO) 85 K/uL (140-450); RED CELL DISTRIBUTION WIDTH 22.5 % (11.6-13.7); WHITE BLOOD COUNT (AUTO) 7.1 K/uL (4.8-10.8)
[2018-08-12 08:00] VITALS: BP 146/45
[2018-08-12] MEDS: LACTOBACILLUS RHAMNOSUS GG 1 EACH CAP PO SCH (08:34)
[2018-08-12] MEDS: FERROUS GLUCONATE 324 MG TAB PO SCH ×2 (08:35→17:22)
[2018-08-12] MEDS: VIT-B COMP/VIT-C/FOLIC ACID 1 TAB PO SCH (08:35)
[2018-08-12] MEDS: SODIUM PHOS / POTASSIUM PHOS 1 PKT PDR PO SCH ×3 (08:35→17:22)
[2018-08-12] MEDS: POTASSIUM CHLORIDE 20% 40 MEQ/15 ML UDC PO SCH (08:35)
[2018-08-12] MEDS: PANTOPRAZOLE 40 MG INJ VIAL IVP SCH (08:35)
[2018-08-12] MEDS: ATORVASTATIN 20 MG TAB PO SCH (08:35)
[2018-08-12] MEDS: CITALOPRAM 20 MG TAB PO SCH (08:35)
[2018-08-12] MEDS: LACTULOSE 20 GM/30 ML UDC PO SCH (08:36)
[2018-08-12 08:48] LABS: CARBON DIOXIDE 32.7 mmol/L (21-32); CHLORIDE 105 mmol/L (98-107); CREATININE 0.4 mg/dL (0.6-1.3); GLUCOSE 109 mg/dL (74-106); POTASSIUM 3.7 mmol/L (3.5-5.1); SODIUM SERUM 143 mmol/L (136-145); UREA NITROGEN, BLOOD 8 mg/dL (7-18)
[2018-08-12 08:49] LABS: MAGNESIUM 1.5 mg/dL (1.8-2.4); PHOSPHORUS 1.3 mg/dL (2.5-4.9)
[2018-08-12] MEDS ORDERED: CALCIUM CARB 600 MG TAB PO SCH (09:00)
[2018-08-12] MEDS ORDERED: MAG SULF 2000 MG/WATER PREMIX 100 ML IV ONE (10:45)
[2018-08-12] MEDS ORDERED: MAGNESIUM SULFATE 4GM in STERILE WATER 100 ML PREMIX IV SCH (11:30)
[2018-08-12 12:00] VITALS: BP 135/51
[2018-08-12] MEDS ORDERED: SODIUM PHOSPHATE 30 MMOLE in NACL 0.9% 250 ML IV SCH (15:00)
[2018-08-12] MEDS ORDERED: FLUC200P10 IV (15:30)
[2018-08-12 16:00] VITALS: BP 122/60
[2018-08-12] MEDS: SENNA 8.6 MG TAB PO SCH (19:53)
[2018-08-12] MEDS: FLUCONAZOLE 200 MG/NS PREMIX 100 ML IV SCH (19:53)
[2018-08-12] MEDS: CEFEPIME 1,000 MG in DEXTROSE 5% 50 ML IV SCH (20:02)
[2018-08-12 20:14] VITALS: BP 138/44
== END 2018-08-12 22:20 | DRG 177 ==
LOC: MED 11:45 → MIC 14:01 → MTU 08-06 17:37
PROVIDERS: ADMIT General Practice; ATTEND General Practice
PROC: 02HV33Z Insertion of Infusion Device into Superior Vena Cava, Percutaneous Approach (ICD-10-PCS; principal; 2018-08-02)
PROC: 30233N1 Transfusion of Nonautologous Red Blood Cells into Peripheral Vein, Percutaneous Approach (ICD-10-PCS; 2018-08-02)
PROC: B548ZZA Ultrasonography of Superior Vena Cava, Guidance (ICD-10-PCS; 2018-08-02)
PROC: 3E02340 Introduction of Influenza Vaccine into Muscle, Percutaneous Approach (ICD-10-PCS; 2018-08-12)
DX: J69.0 Pneumonitis due to inhalation of food and vomit (principal); K57.31 Diverticulosis of large intestine without perforation or abscess with bleeding; N17.0 Acute kidney failure with tubular necrosis; E43 Unspecified severe protein-calorie malnutrition; I21.A1 Myocardial infarction type 2; S82.002A Unspecified fracture of left patella, initial encounter for closed fracture; R65.10 Systemic inflammatory response syndrome (SIRS) of non-infectious origin without acute organ dysfunction; B37.49 Other urogenital candidiasis; D62 Acute posthemorrhagic anemia; E87.2 Acidosis; K56.7 Ileus, unspecified; M62.82 Rhabdomyolysis; E87.0 Hyperosmolality and hypernatremia; I43 Cardiomyopathy in diseases classified elsewhere; E83.41 Hypermagnesemia; L89.151 Pressure ulcer of sacral region, stage 1; F17.200 Nicotine dependence, unspecified, uncomplicated; E11.9 Type 2 diabetes mellitus without complications; D69.6 Thrombocytopenia, unspecified; E78.5 Hyperlipidemia, unspecified; E78.6 Lipoprotein deficiency; E86.0 Dehydration; I25.10 Atherosclerotic heart disease of native coronary artery without angina pectoris; M81.0 Age-related osteoporosis without current pathological fracture; F32.9 Major depressive disorder, single episode, unspecified; I11.9 Hypertensive heart disease without heart failure; E83.39 Other disorders of phosphorus metabolism; S10.93XA Contusion of unspecified part of neck, initial encounter; I48.91 Unspecified atrial fibrillation; I27.21 Secondary pulmonary arterial hypertension; I07.1 Rheumatic tricuspid insufficiency; L25.9 Unspecified contact dermatitis, unspecified cause; E87.8 Other disorders of electrolyte and fluid balance, not elsewhere classified; E83.51 Hypocalcemia; I65.22 Occlusion and stenosis of left carotid artery; S01.81XA Laceration without foreign body of other part of head, initial encounter; K42.9 Umbilical hernia without obstruction or gangrene; W18.30XA Fall on same level, unspecified, initial encounter; Z85.038 Personal history of other malignant neoplasm of large intestine; Z90.49 Acquired absence of other specified parts of digestive tract; Z95.2 Presence of prosthetic heart valve; Z68.24 Body mass index [BMI] 24.0-24.9, adult; Z23 Encounter for immunization; Z79.02 Long term (current) use of antithrombotics/antiplatelets; Z79.899 Other long term (current) drug therapy; Z80.0 Family history of malignant neoplasm of digestive organs; Z71.3 Dietary counseling and surveillance; Y93.89 Activity, other specified; Y92.091 Bathroom in other non-institutional residence as the place of occurrence of the external cause; Y99.8 Other external cause status; Z79.84 Long term (current) use of oral hypoglycemic drugs
CPT/HCPCS: 36415; 36600; 70450; 71045; 71270; 72125; 73562; 73610; 76705; 76770; 80048; 80053; 81003; 82150; 82378; 82550; 82553; 82607; 82668; 82728; 82746; 82803; 82948; 83036; 83540; 83605; 83690; 83735; 83880; 83935; 84100; 84300; 84436; 84439; 84443; 84479; 84484; 85025; 85045; 85610; 85730; 86870; 86886; 86900; 86901; 86920; 87040; 87081; 87086; 90658; 92610; 93005; 96365; 97110; 97116; 97530; 99291; C1758; C9113; J0692; J1160; J1170; J1265; J1450; J1642; J1940; J1956; J2060; J2270; J2543; J2916; J3490; J7030; J7042; J7060; P9016; P9046; Q0092; Q0163; Q9967